=== PATIENT | female | born 1985 | race Caucasian/White ===

== ENCOUNTER 2018-05-17 19:32 | Inpatient (IN) ==
[2018-05-17] MEDS ORDERED: LACTATED RINGER'S 1,000 ML IV PRN ×2 (20:07→21:49)
[2018-05-17] MEDS ORDERED: OXYTOCIN 30 UNITS/500 ML BAG IV PRN (20:07)
[2018-05-17] MEDS ORDERED: PENICILLIN G POTASSIUM 3 MU in DEXTROSE 5% 100 ML IV PRN (20:07)
--- NOTE | 2018-05-17 20:16 | History & Physical Report ---
Date of Service May 17, 2018 Assessment & Plan (1) Amniotic fluid leaking: Patient is a 32 yo at 39 wks with SROM, in early labor, GBS+, FHR reassuring Plan admit, monitor, PCN for GBS, epidural for pain and anticipate History of Present Illness Chief Complaint: Leaking Primary Care Provider: Flavia Garcia, DO Patient is a 32 yo at 39 wks who felt a gush of clear fluid leaking at 1855 tonight, has been trickling fluids and soaking her pants No VB Mild irregular cramping since then +FM' No fever chills/CP/SOB/ BARROW/ Change in vision Desires epidural for pain Her has been complicated by 1) GBS+ 2) abnormal Glucola, 1 elevated nuber of 3 hour OGTT 3) Class I Obesity Her cervix was checked in the office this morning and was 2cm/ 60%/ -2 She is nervous about missing epidural for pain and missing 2 doses of PCN. Allergies Allergy/AdvReac Type Severity Reaction Status Date / Time cat dander Allergy Severe SHORTNESS Unverified 06/29/14 15:56 OF BREATH iodine Allergy Intermediate TINGLING Verified 06/29/14 15:56 AND BURNING lisinopril Allergy Intermediate COUGH Verified 06/29/14 15:56 Home Medications Home Medications Medication Instructions Recorded Confirmed Type Multivit/Min/Iron/Fol Ac/Pren 1 tab PO DAILY #0 tab 11/13/12 History ( Vitamin) Acetaminophen/Codeine (Tylenol 1 tab PO Q4H PRN #30 tab 07/01/14 Rx W/Codeine #3) Ibuprofen 600 mg PO Q4H PRN #30 tab 07/01/14 Rx Patient History OB History 2 FT 's [employer] History No h/o STD's, no h/o HSV, Chlamydia nor Gonorrhea Review of Systems All systems reviewed & are unremarkable except as noted in HPI & below Physical Exam 2 Vital Signs (Past 24 Hours): Last Vital Signs Pulse 99 H 05/17/18 19:48 BP 136/88 05/17/18 19:48 Constitutional: WD/WN, vitals as above well nourished and comfortable Genitourinary: OB Exam Abdomen: + vertex Manual OB Exam: + cervical dilation (3-4 cm), + cervical effacement 70%, + station -2 and + amniotic fluid (grossly leaking, clear) nitrazine positive OB Exam Monitor Tracing: + category I Monitoring Tocodynamometer ctxs q 2-3 min
[2018-05-17 20:30] LABS: Hematocrit (blood only) 36.7 % (37-47); Mean Corpuscular Volume 82.5 fL (80-100); Mean Platelet Volume 11.4 fL (7.4-10.4); Platelet Count 165 K/uL (130-400); RDW Coefficient of Variation 14.1 % (11.5-14.5); RDW Standard Deviation 42.4 fL (36.4-46.3); Red Blood Count 4.45 M/uL (4.2-5.4); White Blood Count 10.46 K/uL (4.8-10.8)
[2018-05-17] MEDS ORDERED: PENICILLIN G POTASSIUM 6 MU in DEXTROSE 5% 250 ML IV ONE (20:30)
[2018-05-17 20:47] LABS: Mean Corpuscular Hgb Conc 32.7 g/dL (32-36)
[2018-05-17] MEDS ORDERED: ePHEDrine sulfate 50 MG/ML AMP ONE (21:04)
[2018-05-17] MEDS ORDERED: BUPIVACAINE 0.25% 30 ML VIAL ONE (21:04)
[2018-05-17] MEDS ORDERED: fentaNYL 2MCG/ML ROPIV 1.25MG/ML 100 ML BAG EPI ONE (21:05)
[2018-05-17] MEDS ORDERED: fentaNYL citrate 100 MCG/2 ML VIAL ONE (21:05)
[2018-05-17] MEDS: LACTATED RINGER'S 1,000 ML IV SCH ×2 (21:16→23:59)
--- NOTE | 2018-05-17 21:17 | Anesthesiology Consultation ---
Date of Service May 17, 2018 Assessment & Plan Chart Review Chart Review: Patient NOT seen in Pre Admission Testing and Acceptable Risk for Labor Epidural ASA ASA2 Proposed Anesthesia Anesthesia Type: Labor Epidural Risk / Benefits Reviewed With: PT / POA / Parent / Guardian, Accepts Plan and Informed Consent Obtained NPO Date Last Intake of Fluids: 05/17/18 Time Last Intake of Fluids: 21:00 Date Last Intake of Solids: 05/17/18 Time Last Intake of Solids: 17:00 History Height/Weight Weight: 76.374 kg Allergies Allergy/AdvReac Type Severity Reaction Status Date / Time cat dander Allergy Severe SHORTNESS Unverified 06/29/14 15:56 OF BREATH iodine Allergy Intermediate TINGLING Verified 06/29/14 15:56 AND BURNING lisinopril Allergy Intermediate COUGH Verified 06/29/14 15:56 Medications Home Medications Medication Instructions Recorded Confirmed Last Taken Multivit/Min/Iron/Fol Ac/Pren 1 tab PO DAILY #0 tab 11/13/12 Unknown ( Vitamin) Acetaminophen/Codeine (Tylenol 1 tab PO Q4H PRN #30 tab 07/01/14 Unknown W/Codeine #3) Ibuprofen 600 mg PO Q4H PRN #30 tab 07/01/14 Unknown Active Medications Generic Name Dose Route Start Last Admin Trade Name Freq PRN Reason Stop Dose Admin Lactated Ringer's 1,000 mls @ 999 mls/hr 05/17/18 20:07 05/17/18 20:11 Lr IV 06/16/18 20:06 999 mls/hr .Q1H1M PRN Administration (Pre-Anesthesia) Lactated Ringer's 1,000 mls @ 150 mls/hr 05/17/18 20:15 05/17/18 21:16 Lr IV 05/19/18 20:14 150 mls/hr .Q6H40M KULWINDER Administration Penicillin G Potassium 6 mu/ 262 mls @ 262 mls/hr 05/17/18 20:30 05/17/18 20: 41 Dextrose IV 05/17/18 21:29 262 mls/hr ONE ONE Administration Past Medical History Medical History Amniotic fluid leaking Asthma (Chronic) Has not used inhalers for years. No h/o hospitalization or intubation due to asthma Back pain (Acute) Premature rupture of membranes (Acute) GERD (gastroesophageal reflux disease) Past Surgical History Surgical History H/O wisdom tooth extraction S/P bunionectomy Past Anesthesia History No Hx of Anesthesia Complications and No Family Hx of Anesthesia Complications History of PONV No Motion Sickness Screening History of Motion Sickness: Yes (Sometimes) Social History Smoking Status: Never smoker Do You Dip or Chew Tobacco: No Hx Alcohol Use: No Hx Substance Use: No substance use type: does not use Exercise / Class Metabolic Activity II 4-5 Yardwork/Stairs/Walk up central Physical Exam Vital Signs Last Vital Signs Pulse 99 H 05/17/18 19:48 Resp 18 05/17/18 20:16 BP 136/88 05/17/18 19:48 ENMT Mouth: no TMJ abnormality and no TMJ clicking Thyromental Distance: < 3.5 Finger Breadths Mallampati Class: II Neck normal visual inspection; neck extension not limited Respiratory Auscultation: lungs clear to auscultation bilaterally Cardiovascular Rate/Rhythm: regular rate and regular rhythm Psychiatric Orientation: alert and oriented x 3 Testing Laboratory Results 05/17/18 20:17
--- NOTE | 2018-05-17 21:27 | Obstetrical Progress Note ---
Date of Service May 17, 2018 Subjective Patient is reevaluated She is sitting up now and having epidural for pain 1st dose of PCN is being given FHR had been categ I Continue to monitor Physical Exam 2 Vital Signs (Past 24 Hours): Last Vital Signs Pulse 94 H 05/17/18 21:23 Resp 18 05/17/18 20:16 BP 160/97 H 05/17/18 21:23 Pulse Ox 100 05/17/18 21:22
[2018-05-17] MEDS ORDERED: fentaNYL 2MCG/ML ROPIV 1.25MG/ML 100 ML BAG EPI PRN (21:49)
[2018-05-17] MEDS ORDERED: NALBUPHINE HCL INJ 10 MG/ML AMP IV PRN (21:49)
[2018-05-17] MEDS ORDERED: ONDANSETRON INJ 2 MG/ML 2 ML VIAL IV PRN (21:49)
[2018-05-17] MEDS ORDERED: DiphenhydrAMINE HCL 50 MG/ML VIAL IV PRN (21:49)
[2018-05-17] MEDS ORDERED: PROMETHAZINE HCL 12.5 MG in SODIUM CHLORIDE 0.9% 50 ML IV PRN (21:49)
[2018-05-17] MEDS ORDERED: ePHEDrine sulfate 50 MG/ML AMP IV PRN (21:49)
[2018-05-17] MEDS ORDERED: NALOXONE HCL 0.4 MG/1 ML VIAL/CARP IV PRN (21:49)
[2018-05-17] MEDS ORDERED: NALOXONE HCL 1 MG in SODIUM CHLORIDE 0.9% 1000ML 1,000 ML IV PRN (21:49)
--- NOTE | 2018-05-17 23:07 | Obstetrical Progress Note ---
Date of Service May 17, 2018 Subjective Patient is revaluated She feels comfortable now Recieved epidural for pain 1st dose of PCN was given Mild lower abdominal pressure but no pain Offered VE but declined FHR categ I Continue to monitor closely Physical Exam 2 Vital Signs (Past 24 Hours): Last Vital Signs Pulse 91 H 05/17/18 23:02 Resp 18 05/17/18 20:16 BP 106/66 05/17/18 22:55 Pulse Ox 96 05/17/18 23:02
--- NOTE | 2018-05-17 23:57 | Obstetrical Progress Note ---
Date of Service May 17, 2018 Subjective Patient feels rectal pressure, constant Desires to be checked VE; 67/ 90%/ -1 FHR categ I [place]: ctxs q2-3min Continue to monitor closely Anticipate Physical Exam 2 Vital Signs (Past 24 Hours): Last Vital Signs Pulse 93 H 05/17/18 23:55 Resp 18 05/17/18 20:16 BP 119/72 05/17/18 23:41 Pulse Ox 94 05/17/18 23:55
--- NOTE | 2018-05-18 00:48 | Obstetrical Progress Note ---
Date of Service May 18, 2018 Physical Exam 2 Vital Signs (Past 24 Hours): Last Vital Signs Pulse 113 H 05/18/18 00:42 Resp 18 05/17/18 20:16 BP 125/75 05/18/18 00:41 Pulse Ox 96 05/18/18 00:42 Genitourinary: OB Exam Abdomen: + regular contractions Manual OB Exam: + cervical dilation 10 cm, + cervical effacement 100% and + station -1 OB Exam Monitor Tracing: + external uterine monitor used and + category I will labor down until feeling urge to push
[2018-05-18] MEDS ORDERED: BISACODYL 10 MG SUPP PR PRN (01:20)
[2018-05-18] MEDS ORDERED: DIPHTHERIA/TETANUS/PERTUSSIS 0.5 ML SYR/VIAL IM ONE (01:20)
[2018-05-18] MEDS ORDERED: HYDROCORTISONE ACETATE 25 MG SUPP PR PRN (01:20)
[2018-05-18] MEDS ORDERED: OXYTOCIN 30 UNITS/500 ML BAG IV PRN (01:20)
[2018-05-18] MEDS ORDERED: SUPERCREAM 0.870% 15 GM JAR EXT PRN (01:20)
[2018-05-18] MEDS ORDERED: BENZOCAINE 20% AER SPR 82.5 GM CAN EXT PRN (01:20)
--- NOTE | 2018-05-18 01:23 | Anesthesia Procedure Note ---
Date of Service May 18, 2018 Anesthesia Post Epidural Note Vital Signs Vital Signs: Pulse Resp BP Pulse Ox 05/18/18 01:22 105 H 141/82 H 05/18/18 01:12 115 H 97 05/18/18 01:10 143 H 94 05/18/18 01:07 119 H 96 05/18/18 01:02 108 H 97 05/18/18 00:57 116 H 97 05/18/18 00:56 96 H 121/81 05/18/18 00:52 108 H 96 05/18/18 00:47 101 H 96 05/18/18 00:42 113 H 96 05/18/18 00:41 114 H 125/75 05/18/18 00:37 98 H 95 05/18/18 00:35 105 H 94 05/18/18 00:32 108 H 95 05/18/18 00:29 112 H 94 05/18/18 00:27 104 H 96 05/18/18 00:25 98 H 118/76 05/18/18 00:22 103 H 95 05/18/18 00:17 97 H 96 05/18/18 00:12 93 H 126/77 95 05/18/18 00:07 97 H 95 05/18/18 00:02 96 H 96 05/17/18 23:57 97 H 96 05/17/18 23:56 86 127/79 05/17/18 23:55 93 H 94 05/17/18 23:52 108 H 96 05/17/18 23:48 95 H 94 05/17/18 23:47 100 H 96 05/17/18 23:42 90 95 05/17/18 23:41 95 H 119/72 05/17/18 23:37 93 H 96 05/17/18 23:32 91 H 97 05/17/18 23:27 88 115/67 96 05/17/18 23:22 105 H 97 05/17/18 23:17 92 H 97 05/17/18 23:12 92 H 97 05/17/18 23:11 91 H 118/69 05/17/18 23:07 89 97 05/17/18 23:02 91 H 96 05/17/18 22:57 88 96 05/17/18 22:55 104 H 106/66 05/17/18 22:52 91 H 97 05/17/18 22:47 87 96 05/17/18 22:46 91 H 94 05/17/18 22:42 88 97 05/17/18 22:40 91 H 116/65 05/17/18 22:37 97 H 96 05/17/18 22:32 88 97 05/17/18 22:27 90 97 05/17/18 22:25 103 H 110/64 05/17/18 22:22 78 112/67 96 05/17/18 22:19 101 H 102/63 05/17/18 22:17 91 H 96 05/17/18 22:16 91 H 109/63 05/17/18 22:13 86 118/64 05/17/18 22:12 98 H 97 05/17/18 22:11 89 112/62 05/17/18 22:08 106 H 97/67 L 05/17/18 22:07 105 H 98 05/17/18 22:04 100 H 107/63 05/17/18 22:02 90 109/68 96 05/17/18 21:58 96 H 99/56 L 05/17/18 21:57 87 96 05/17/18 21:55 91 H 99/56 L 05/17/18 21:52 108 H 114/64 97 05/17/18 21:49 99 H 104/60 05/17/18 21:47 87 97 05/17/18 21:46 89 101/55 L 05/17/18 21:43 120 H 105/57 L 05/17/18 21:42 105 H 98 05/17/18 21:41 73 129/63 05/17/18 21:38 72 109/63 05/17/18 21:37 73 97 05/17/18 21:32 100 H 99 05/17/18 21:31 98 H 139/91 05/17/18 21:28 101 H 143/94 H 05/17/18 21:27 101 H 100 05/17/18 21:25 96 H 151/93 H 05/17/18 21:23 94 H 160/97 H 05/17/18 21:22 90 100 05/17/18 21:17 82 100 05/17/18 20:16 18 05/17/18 19:48 99 H 136/88 Notes Mental Status: alert / awake / arousable Patient Amnestic to Procedure: No Nausea / Vomiting: adequately controlled Pain: adequately controlled Airway Patency, RR, SpO2: stable & adequate BP & HR: stable & adequate Hydration State: stable & adequate Anesthetic Complications: no major complications apparent Epidural: Removed without complications and With tip intact Notes: Site looks clean, dry, intact without signs of edema or erythema. Pt doing well without complaints. VSS
--- NOTE | 2018-05-18 01:25 | Procedure Note ---
Vaginal Delivery Summary Date of Service May 18, 2018 Vaginal Delivery Summary Delivery Note live male over intact perineum with nuchal cord x1 reduced at delivery. Apgars 8/10 weight pending. Delayed cord clamping followed by cord blood and spontaneous delivery of intact placenta. No tears. EBL 100 ml. Final sponge and instrument are correct. Mom and baby stable
[2018-05-18] MEDS: FERROUS SULFATE 325 MG TAB PO SCH (07:12)
[2018-05-18] MEDS: PRENATAL VITAMIN 1 TAB PO SCH (07:13)
[2018-05-18] MEDS: IBUPROFEN 600 MG TAB PO PRN ×3 (07:13→15:42)
[2018-05-18] MEDS: DOCUSATE SODIUM 100 MG CAP PO SCH ×2 (10:03→20:34)
[2018-05-18] MEDS: ACETAMINOPHEN 325 MG TAB PO PRN (20:34)
[2018-05-19] MEDS: ACETAMINOPHEN 325 MG TAB PO PRN ×2 (00:38→07:18)
[2018-05-19] MEDS: IBUPROFEN 600 MG TAB PO PRN ×3 (00:39→09:18)
[2018-05-19 06:15] LABS: Hemoglobin 10.1 g/dL (12.0-16.0); Mean Corpuscular Hgb Conc 32.6 g/dL (32-36); Mean Corpuscular Volume 84.5 fL (80-100); Mean Platelet Volume 11.3 fL (7.4-10.4); Platelet Count 127 K/uL (130-400); RDW Coefficient of Variation 14.3 % (11.5-14.5); RDW Standard Deviation 44.1 fL (36.4-46.3); Red Blood Count 3.67 M/uL (4.2-5.4)
[2018-05-19] MEDS: FERROUS SULFATE 325 MG TAB PO SCH (09:18)
[2018-05-19] MEDS: PRENATAL VITAMIN 1 TAB PO SCH (09:18)
[2018-05-19] MEDS: DOCUSATE SODIUM 100 MG CAP PO SCH (09:18)
--- NOTE | 2018-05-19 12:50 | Obstetrical Progress Note ---
Date of Service May 19, 2018 Assessment & Plan (1) normal course: Pt doing well PPD #1 No complaints pt wishes to go home dsich home with instructions Subjective Ambulation: ambulating normally Voiding: no voiding problems Passing Gas:: Yes Diet Tolerance:: regular diet Lochia:: Small Feeding Type:: breast feeding Review of Systems All systems reviewed & are unremarkable except as noted in HPI & below Physical Exam Vital Signs (Past 24 Hours) Last Vital Signs Temp 37.1 C 05/19/18 08:00 Pulse 80 05/19/18 08:00 Resp 16 05/19/18 08:00 BP 121/85 05/19/18 08:00 Pulse Ox 98 05/19/18 08:00 Constitutional WD/WN, vitals as above well developed and well nourished Eyes PERRL, conjunctivae normal, anicteric sclerae Neck trachea midline, no thyromegaly Respiratory normal respiratory effort, lungs clear to auscultation Auscultation: no crackles, no rales and no wheezes Cardiovascular RRR, no murmur, no edema Gastrointestinal (Abdomen) normal bowel sounds, soft, nontender, no hepatosplenomegaly Uterus is below umbilicus Musculoskeletal no cyanosis or clubbing, extremities motor strength 5/5 Skin no rashes, warm and dry Neurologic patellar DTR's 2+ bilat, sensation intact Psychiatric A+Ox3, euthymic affect Genitourinary normal external appearance
[2018-05-19] MEDS ORDERED: BISACODYL 5 MG TABEC PO SCH (20:00)
== END 2018-05-19 14:00 | disposition home or self-care (01) | DRG 807 ==
LOC: OPB 19:32 → 4S1 19:35 → 4S2 05-18 06:14